=== PATIENT | male | born 2000 | race African-American/Black ===

== ENCOUNTER 2022-08-24 00:49 | Emergency (ER) | payer SELFPAY ==
[2022-08-24] VITALS (16 sets, daily range): BP systolic 114–134; BP diastolic 57–94; PULSE 76–102; RESP 13–19; TEMP 36.5; O2SAT 98–100
--- NOTE | ~2022-08-24 | XR_ITS ---
EXAMINATION: XR chest 1V portable INDICATION: Weakness TECHNIQUE: Portable AP chest at 0106 hours COMPARISON: None available FINDINGS: The lungs are free of acute opacities. No pleural effusion or pneumothorax. The cardiomedia stinal silhouette is normal. IMPRESSION: 1. No acute cardiopulmonary abnormality. Reviewed, dictated and finalized at location A.
--- NOTE | ~2022-08-24 | CT_ITS ---
EXAMINATION: CT brain wo con INDICATION: Altered mental status COMPARISON: None TECHNIQUE: Standard unenhanced head CT. The dose-length product (DLP) was 681.00 mGy-cm. The mA was a djusted according to patient size. Iterative reconstruction technique was employed. FINDINGS: There is no intracranial hemorrhage, acute infarction, or abnormal mass lesion. The ventric les are normal. There is no abnormal mass effect or midline shift. The lerner-white matter differentiat ion is normal. The basal cisterns are patent. The orbits are normal. The paranasal sinuses, mastoids and calvarium are normal. IMPRESSION: 1. No acute intracranial abnormality. Reviewed, dictated and finalized at location A.
--- NOTE | 2022-08-24 00:54 | ECG_ITS ---
Measurements Intervals [place] Rate: 61 P: 40 TX: 164 QRS: 67 QRSD: 115 T: 30 QT: 396 QTc: 400 Interpretive Statements SINUS RHYTHM WITH SINUS ARRHYTHMIA INTRAVENTRICULAR CONDUCTION DELAY BASELINE ARTIFACT- I, III, AVR, AVL, AVF, V2 BORDERLINE ECG NO PREVIOUS ECG AVAILABLE FOR COMPARISON Electronically Signed On 08-24-2022 8:20:56 CDT by Justin Nguyen D.O.
--- NOTE | 2022-08-24 00:58 | ECG_ITS ---
Measurements Intervals [place] Rate: 76 P: 37 IN: 173 QRS: 66 QRSD: 117 T: 12 QT: 381 QTc: 429 Interpretive Statements SINUS RHYTHM INTRAVENTRICULAR CONDUCTION DELAY BORDERLINE ECG NO PREVIOUS ECG AVAILABLE FOR COMPARISON Electronically Signed On 08-28-2022 15:30:59 CDT by Justin Nguyen D.O.
--- NOTE | 2022-08-24 01:02 | ED.GENADULT ---
HPI - General Adult General Chief complaint: Altered Mental Status Stated complaint: OD Time Seen by Provider: 08/24/22 00:54 History of Present Illness HPI narrative: Patient is a 22-year-old gentleman who presents the emergency department with chief complaint of altered mental status. Per the patient's friends the patient drink a large amount of alcohol and short period of time. History is limited due to the patient's intoxicated state Review of Systems Review of Systems: A 10 system review of systems was completed on the patient and is negative except for what is stated in the HPI. Nursing and ancillary documentation was reviewed. Exam Narrative: GENERAL: Minimally responsive, appears intoxicated HEAD: Normocephalic, atraumatic. EYES: PERRLA and EOMI. ENT: Nares clear, no rhinorrhea or epistaxis. Mucous membranes moist. NECK: Supple. CHEST: Clear to auscultation. No respiratory distress. HEART: Regular rate and rhythm. No murmur heard. Normal peripheral pulses. ABDOMEN: Soft, nontender, nondistended, normal active bowel sounds. EXTREMITIES: Normal range of motion. No edema. SKIN: Warm, dry, no rash. NEURO: No focal deficits. Slow to respond. PSYCH: Normal mood and affect. Course Vital Signs Vital signs: Vital Signs Pulse Rate 83 08/24/22 00:51 Respiratory Rate 19 08/24/22 00:51 Blood Pressure 132/57 L 08/24/22 00:51 Temperature 36.5 C 08/24/22 02:00 Pulse Rate 102 H 08/24/22 05:01 Respiratory Rate 13 08/24/22 05:01 Blood Pressure 118/94 H 08/24/22 05:01 Pulse Oximetry 100 08/24/22 05:01 Medical Decision Making [facility] Narrative Medical decision making narrative: Differential diagnosis includes acute alcohol intoxication, polysubstance overdose, altered mental status, head trauma, metabolic encephalopathy. Patient initially received a dose of Narcan on arrival to the emergency department which did not help with symptoms. The patient currently is protecting his airway Laboratory studies were obtained which showed a negative tox screen but a positive EtOH at 224. CT head showed no evidence of acute abnormality Chest x-ray interpreted by me showed no evidence of focal infiltrate. Patient will be hydrated and observed in the emergency department and allowed to metabolize his alcohol. After observation in the emergency department the patient woke up and was able to answer questions appropriately and would like to be discharged home Vital Signs Vital Signs: Vital Signs Pulse Rate 83 08/24/22 00:51 Respiratory Rate 19 08/24/22 00:51 Blood Pressure 132/57 L 08/24/22 00:51 Temperature 36.5 C 08/24/22 02:00 Pulse Rate 102 H 08/24/22 05:01 Respiratory Rate 13 08/24/22 05:01 Blood Pressure 118/94 H 08/24/22 05:01 Pulse Oximetry 100 08/24/22 05:01 Lab Data 08/24/22 01:06 08/24/22 01:06 Labs: Lab Results 08/24/22 08/24/22 08/24/22 Range/Units 01:06 01:06 01:06 WBC 8.4 (4.5-10.0) K/mm3 RBC 5.34 (4.6-6.20) M/mm3 Hgb 15.6 (14.0-18.0) g/dL Hct 44.8 (42.0-52.0) % MCV 83.9 (80-100) fl MCH 29.2 (26-34) pg MCHC 34.8 (32-36) g/dl RDW 13.0 (11.5-14.5) % Plt Count 308 (150-375) k/mm3 MPV 9.8 (7.4-10.4) fl Immature Gran % (Auto) 0.6 H (0-0.5) % Neut % (Auto) 47.4 (45.5-73.1) % Lymph % (Auto) 44.7 H (18.3-44.2) % Frontier % (Auto) 6.5 (2.6-8.5) % Eos % (Auto) 0.4 (0-4.4) % Baso % (Auto) 0.4 (0.2-1.2) % Lymph # (Auto) 3.74 H (0.9-3.2) K/mm3 Frontier # (Auto) 0.5 (0.1-0.6) K/mm3 Eos # (Auto) 0.0 (0-0.3) K/mm3 Baso # (Auto) 0.0 (0.0-0.1) K/mm3 Abs Immat Gran (auto) 0.05 H (0.00-0.031) K/mm3 Absolute Neuts (auto) 4.0 (1.3-6.7) K/mm3 Absolute Nucleated RBC 0.0 (0.0-0.012) K/mm3 Nucleated RBC % 0.0 (0.0-0.2) % Sodium 142 (137-145) mmol/L Potassium 3.4 (3.4-5.0) mmol/L Chloride 106 (98-107) mmol/L
[2022-08-24] MEDS: ONDANSETRON INJ 4 MG/2 ML VIAL IV PUSH (01:09)
[2022-08-24] MEDS: SODIUM CHLORIDE 0.9% IV 1,000 ML 999 ML IV CONT (01:09)
[2022-08-24 01:12] LABS: Basophils Percent Auto 0.4 % (0.2-1.2); Eosinophils Percent Auto 0.4 % (0-4.4); Hematocrit 44.8 % (42.0-52.0); Hemoglobin 15.6 g/dL (14.0-18.0); Immature Granulocyte Absolute 0.05 K/mm3 (0.00-0.031); Immature Granulocyte Percent A 0.6 % (0-0.5); Lymphocytes Absolute Auto 3.74 K/mm3 (0.9-3.2); Lymphocytes Percent Auto 44.7 % (18.3-44.2); Mean Corpuscular HGB Conc 34.8 g/dl (32-36); Mean Corpuscular Hemoglobin 29.2 pg (26-34); Mean Corpuscular Volume 83.9 fl (80-100); Mean Platelet Volume 9.8 fl (7.4-10.4); Monocytes Absolute Auto 0.5 K/mm3 (0.1-0.6); Monocytes Percent Auto 6.5 % (2.6-8.5); Neutrophils Percent Auto 47.4 % (45.5-73.1); Platelet Count Result 308 k/mm3 (150-375); Red Blood Count 5.34 M/mm3 (4.6-6.20); White Blood Count 8.4 K/mm3 (4.5-10.0)
[2022-08-24 01:20] LABS: Ethanol 224 mg/dL (<10)
[2022-08-24 01:21] LABS: Alanine Aminotransferase 49 U/L (6-50); Albumin Level 5.2 g/dL (3.5-5.1); Alkaline Phosphatase 77 U/L (38-126); Anion Gap 13 mmol/L (8-16); Aspartate Amino Transferase 35 U/L (17-59); Bilirubin,Total 0.8 mg/dL (0.2-1.3); Blood Urea Nitrogen 13 mg/dL (9-20); Calcium 8.8 mg/dL (8.4-10.2); Carbon Dioxide 23 mmol/L (22-30); Chloride 106 mmol/L (98-107); Estimated Glomerular Filt Rate > 60; Glucose 155 mg/dL (65-110); Potassium 3.4 mmol/L (3.4-5.0); Sodium 142 mmol/L (137-145)
[2022-08-24 02:18] LABS: Appearance Urine Clear (Clear); Bilirubin Urine Negative (Negative); Blood Urine Negative (Negative); Color Urine Yellow (Yellow); Glucose Urine UA Negative (Negative); Ketones Urine Negative (Negative); Leukocyte Esterase Ur Negative LEU/UL (Negative); Nitrate Urine Negative (Negative); Protein Urine Negative (Negative); Specific Grav Ur 1.017 (1.001-1.035); Urobilinogen Urine 0.2 mg/dL (<2.0)
[2022-08-24 02:31] LABS: Amphetamine Screen Urine Negative (Negative); Barbiturate Screen Urine Negative (Negative); Benzodiazepines Screen Urine Negative (Negative); Cannabinoid Screen Urine Negative (Negative); Cocaine Screen Urine Negative (Negative); Methadone Screen Urine Negative (Negative); Opiate Screen Urine Negative (Negative); Phencyclidine Screen Urine Negative (Negative)
[2022-08-24 02:33] LABS: Add Urine Microscopic? NO
== END 2022-08-24 05:28 | disposition home or self-care (01) ==
PROVIDERS: Emergency Provider Emergency Medicine
DX: F10.129 Alcohol abuse with intoxication, unspecified (principal); R41.82 Altered mental status, unspecified
CPT/HCPCS: 36415; 70450; 71045; 80053; 80307; 81003; 85025; 93005; 96361; 96374; 99284; J2405; J7030